=== PATIENT | female | born 1960 | race African-American/Black ===

== ENCOUNTER 2025-02-21 17:06 | Emergency (ER) | payer BC ==
[~2025-02-21] VITALS: Ht 165.1 cm; Wt 82.0 kg
[2025-02-21 17:13] VITALS: O2SAT 99
[2025-02-21] MEDS ORDERED: MECL-217 MT (19:22)
[2025-02-21] MEDS ORDERED: IBUP-1455 MT (19:22)
[2025-02-21] MEDS ORDERED: ONDA-239 PO (19:22)
[2025-02-21 19:49] VITALS: TEMP 36.8; O2SAT 100
[2025-02-21] MEDS: MECLIZINE 12.5MG TABLET PO ONE (20:15)
[2025-02-21 20:16] VITALS: BP 171/72; PULSE 77; RESP 18
[2025-02-21] MEDS: KETOROLAC 15MG/ML VIAL IM ONE (20:16)
== END 2025-02-21 20:24 | disposition home or self-care (01) ==
LOC: ER 17:06
DX: S09.90XA Unspecified injury of head, initial encounter (principal); R42 Dizziness and giddiness; I10 Essential (primary) hypertension; Z88.0 Allergy status to penicillin; Z88.1 Allergy status to other antibiotic agents; Z88.3 Allergy status to other anti-infective agents; Z88.8 Allergy status to other drugs, medicaments and biological substances; X58.XXXA Exposure to other specified factors, initial encounter; Y93.89 Activity, other specified; Y92.89 Other specified places as the place of occurrence of the external cause; Y99.8 Other external cause status
CPT/HCPCS: 99285; 70450; 96372; J1885; J8597